=== PATIENT | male | born 1950 | race Hispanic/Latino ===

== ENCOUNTER 2018-12-21 10:33 | Outpatient (CLI) | payer MEDICARE ==
--- NOTE | 2018-12-21 11:48 | XRay Report ---
LS spine: Right radiculopathy. AP and lateral views demonstrates large anterior spondylitic changes from T12-L2 with significant narrowing predominantly at the L1-2 interspace. The interspaces between L4-5 and L5-S1 are also moderately narrowed and there is a minimal anterior L4 subluxation relative to L5. The vertebral height is generally maintained at all levels. The bones appears somewhat diminished in overall mineralization. There is some sclerosis predominantly affecting the apophyseal joints between L4 and S1. Impression: Multilevel degenerative changes as detailed above. Right shoulder: Pain. The shoulder joint is aligned and the articular margins are smooth. The joint space appears adequately preserved. The subacromial space may be narrowed. The bones are well-mineralized. Of note is a partially imaged severe dextroscoliosis of the upper thoracic spine. Impression: Questionable subacromial space narrowing. No acute finding.
== END 2018-12-21 10:34 | disposition home or self-care (01) ==
LOC: SPVIMAG 10:33
PROVIDERS: ATTEND Internal Medicine
DX: M48.07 Spinal stenosis, lumbosacral region (principal); M47.895 Other spondylosis, thoracolumbar region; M41.84 Other forms of scoliosis, thoracic region; M25.511 Pain in right shoulder
CPT/HCPCS: 72100